=== PATIENT | male | born 1975 | race Caucasian/White ===

== ENCOUNTER → 2019-04-15 | Outpatient (CLI) | payer MEDICAID, SELFPAY ==
[2017-02-13 18:33] VITALS: BMI 22.1
[2019-04-15 13:31] LABS: Erythrocyte Sedimentation Rate 6 mm/hr (0-15)
[2019-04-15 13:33] LABS: Absolute Lymphocyte Count 2.68 X10^3/uL (0.83-4.51); Absolute Neutrophil Count 3.9 X10^3/uL (2.0-7.7); Basophil# 0.04 X10^3/uL; Basophil% 0.5 % (0-1); Eosinophil# 0.22 X10^3/uL; Eosinophils% 2.9 % (0-5); Hematocrit 41.8 % (40-54); Hemoglobin 14.2 g/dL (13.0-16.5); Lymphocyte # 2.68 X10^3/ul (4.0); Lymphocyte % 34.9 % (19-41); Mean Corpuscular Hgb 30.5 pg (27.0-32.0); Mean Corpuscular Volume 89.7 fL (80-94); Mean Platelet Vol. 9.8 fl (6.2-12.0); Monocyte# 0.87 X10^3/uL; Monocyte% 11.3 % (0-10); NRBC Flagged by Analyzer 0 % (0-5); Neutrophil # 3.86 X10^3/uL (2.7-7.7); Neutrophil % 50.1 % (47-70); Platelet Count 278 K/mm3 (150-450); RBC Distribution Width CV 12.7 % (11.6-14.6); RBC Distribution Width SD 41.8 fl (35.1-43.9); Red Blood Count 4.66 M/mm3 (4.6-6.2); White Blood Count 7.7 K/mm3 (4.4-11.0)
[2019-04-15 14:09] LABS: Uric Acid 4.3 mg/dL (3.5-7.2)
== END | disposition home or self-care (01) ==
PROVIDERS: Family Provider Family Medicine; PCP Family Medicine; Referring Provider Family Medicine; Visit Provider Family Medicine
DX: M10.9 Gout, unspecified (principal)
CPT/HCPCS: 36415; 84550; 85025; 85652

== ENCOUNTER 2019-09-17 21:51 | Emergency (ER) | payer SELFPAY ==
[2019-04-15 15:08] VITALS: BMI 22.1
[2019-09-17 21:53] VITALS: BP 149/95; PULSE 135; RESP 16; TEMP 36.4; O2SAT 95; BMI 21.3
--- NOTE | 2019-09-17 22:47 | ED.VIS.GEN ---
History of Present Illness Chief Complaint: General Illness Informant: Patient Narrative: Patient stated for the last couple weeks he has had intermittent fevers. He was dealing with an infection on the distal pad of his left thumb. He incised and drained it approximately a week ago and got pus out of it. He stated it was 4 times the size of a normal thumb. He never came to the hospital for evaluation. He stated it is almost completely back to normal other than some mild residual redness. He stated that he has not had any respiratory symptoms. He stated that he frequently gets skin abscesses and has to vesta them open. He stated that his scalp sometimes gets bumps. He does use methamphetamines and fentanyl as well as smoke marijuana. Patient reported that he was downstairs sleeping and paramedics brought him in for further evaluation. He denies any respiratory complaints. Past Medical History - Allergies and Home Meds Allergies/Adverse Reactions: Allergies shellfish derived Allergy (Verified 04/15/19 15:06) Swelling codeine phosphate [From Tylenol-Codeine #3] Adverse Reaction (Verified 04/15/19 15:06) Nausea/Vom/Diarrhea hydrocodone bitartrate [From Vicodin] Adverse Reaction (Verified 04/15/19 15:06) Upset Stomach Primary Care Physician: NOT,DEFINED [Primary Care Provider] - Prior records reviewed: Yes Past Medical History: - - Substance abuse, skin abscess Surgical History: noncontributory Lives: With Family Smoking Status: Current every day smoker Alcohol: None Drugs: - - Fentanyl, methamphetamines, marijuana Review of Systems General: Reports: Fever. Denies: Chills, Sweats Eyes: Denies: Visual changes - bilaterally, Diplopia ENT: Denies: Rhinorrhea, Sore throat Cardiovascular: Denies: Chest pain, Palpitations Respiratory: Denies: Dyspnea, Cough, Dyspnea on exertion Gastrointestinal: Denies: Abdominal pain, Nausea, Vomiting, Diarrhea, Melena, Hematochezia Genitourinary: Denies: Dysuria, Hematuria, Frequency Musculoskeletal: Denies: Back pain, Extremity Pain Skin: Reports: Abscess, Wounds. Denies: Rash Neurological: Denies: Headache, Weakness, Numbness Physical Exam Vital Signs/Narrative: Vital Signs Temp Pulse Resp BP Pulse Ox 09/17/19 21:53 97.6 F L 135 H 16 149/95 H 95 General: Well nourished, Well developed, No Acute Distress Head: Normocephalic, Atraumatic Eyes: Perrl, EOMI ENT: Moist mucous membranes, No rhinorrhea Neck: Supple, Nontender Cardiovascular: Regular rate, Regular rhythm, No murmurs Respiratory: No distress, CTA bilaterally, Chest nontender Abdomen: Soft, Nontender, Nondistended, Normal bowel sounds Back: Nontender, Normal Inspection Extremities: Nontender, No edema Skin: - - Patient has some superficial abrasions to the scalp without cellulitis folliculitis or abscess. It is likely from scratching the skin. He has a very small folliculitis in his left groin measuring 2 x 2 mm. His left thumb has very mild swelling from his previous suspected felon. Incision and drainage scar can be seen along the central portion. There does not appear to be any fluctuance or infection at this time. There is no cellulitis to the thumb.. Negative for: Normal color, No rash Neurological: Alert, Oriented x3, Cranial nerves II-XII grossly intact, Normal Strength, Normal Sensation Psychological: Normal affect, Normal Mood Diagnostic/Tx/Re-eval - Medical Decision Making She is getting frequent abscess. It is likely from his drug abuse. His heart rate on repeat evaluation in the room is in the 70s. Initially he had a heart rate in the 130s in triage. I am not sure if this is from anxiety. Nonetheless the patient will be started on Bactrim Keflex due to his frequent skin abscess. There is nothing to incise and drain. His felon is healing. He will be given clindamycin lotion as well to put on any new abscess spots. He will try to avoid intravenous drugs. I do not feel he is septic at this time or bacteremic. ED Disposition - Plan for ED Patient[facility] Diagnosis: Skin abscess, Drug abuse Instructions: ABSCESS, Antiobiotic Treatment Only Prescriptions: Smz/Tmp Ds [Bactrim Ds] 1 tab PO BID #20 tab Prescription Printed Clindamycin Phosphate [Cleocin T] 60 ml TP TID #1 lotion Prescription Printed Cephalexin [Keflex] 500 mg PO Q6 #40 cap Prescription Printed Referrals: NOT,DEFINED [Primary Care Provider] - Jase Multani DO [NON CLINICAL AFFILIATE] -
[2019-09-17 22:52] VITALS: BP 138/85; PULSE 58; RESP 18; O2SAT 97
[2019-09-17] MEDS: Smz/Tmp Ds Tablet 1 TABLET PO (22:52)
[2019-09-17] MEDS: Cephalexin 250 MG Capsule 500 MG PO (22:57)
== END 2019-09-17 23:12 | disposition home or self-care (01) ==
LOC: ED 23:01
PROVIDERS: Emergency Provider Emergency Medicine
DX: L02.91 Cutaneous abscess, unspecified (principal); F15.10 Other stimulant abuse, uncomplicated; F11.10 Opioid abuse, uncomplicated; F12.10 Cannabis abuse, uncomplicated; F17.200 Nicotine dependence, unspecified, uncomplicated
CPT/HCPCS: 99285

== ENCOUNTER 2020-02-20 21:59 | Emergency (ER) | payer SELFPAY ==
[2020-02-20 22:00] VITALS: BP 137/74; PULSE 93; PULSE 95; RESP 16; RESP 18; TEMP 37.7; O2SAT 100; BMI 22.6
--- NOTE | 2020-02-20 22:00 | ED.VIS.GEN ---
History of Present Illness Chief Complaint: Overdose Informant: Patient Onset: Today Context: Sudden Onset Timing: Continuous Current Severity: Mild Maximum Severity: Severe Narrative: The patient is a 44-year-old male with medical history significant for drug abuse that presents to the emergency department after accidental heroin overdose. Manuel was called. On arrival, he had agonal respirations. He was then given 6 mg of intranasal Narcan, had an episode of emesis, and now is awake and alert. He denies being suicidal. He states that he thinks it may have been fentanyl in his heroin. He currently denies any other symptoms. He states he is otherwise been in his normal state of health. Prior similar symptoms: No Recent Illness/Hospitalization: No Past Medical History - Allergies and Home Meds Allergies/Adverse Reactions: Allergies shellfish derived Allergy (Verified 04/15/19 15:06) Swelling codeine phosphate [From Tylenol-Codeine #3] Adverse Reaction (Verified 04/15/19 15:06) Nausea/Vom/Diarrhea hydrocodone bitartrate [From Vicodin] Adverse Reaction (Verified 04/15/19 15:06) Upset Stomach Primary Care Physician: Care Physician,No Primary [Primary Care Provider] - Prior records reviewed: Yes Past Medical History: - - Substance abuse Surgical History: noncontributory Smoking Status: Current every day smoker Review of Systems General: Denies: Chills, Fever, Sweats Eyes: Denies: Visual changes - bilaterally, Diplopia ENT: Denies: Rhinorrhea, Sore throat Cardiovascular: Denies: Chest pain, Palpitations Respiratory: Denies: Dyspnea, Cough, Dyspnea on exertion Gastrointestinal: Denies: Abdominal pain, Nausea, Vomiting, Diarrhea, Melena, Hematochezia Genitourinary: Denies: Dysuria, Hematuria, Frequency Musculoskeletal: Denies: Back pain, Extremity Pain Skin: Denies: Rash, Wounds Neurological: Denies: Headache, Weakness, Numbness Physical Exam Inital Vital Signs reviewed: Yes General: Well nourished, Well developed, No Acute Distress Head: Normocephalic, Atraumatic Eyes: Perrl, EOMI ENT: Moist mucous membranes, No rhinorrhea Neck: Supple, Nontender Cardiovascular: Regular rate, Regular rhythm, No murmurs Respiratory: No distress, CTA bilaterally, Chest nontender Abdomen: Soft, Nontender, Nondistended, Normal bowel sounds Back: Nontender, Normal Inspection Extremities: Nontender, No edema Skin: Normal color, No rash Neurological: Alert, Oriented x3, Cranial nerves II-XII grossly intact, Normal Strength, Normal Sensation Psychological: Normal affect, Normal Mood Diagnostic/Tx/Re-eval - Medical Decision Making The patient presents after accidental overdose. He is awake and alert. He frankly denies being suicidal or homicidal. On arrival, he is not tachycardic, tachypneic or hypoxic. The patient was placed on a threat monitoring analyst. His only complaint was of being cold which I feel is likely secondary from the acute withdrawal from the Narcan. He was reevaluated the 30-minute karey and continues to have no complaints. The patient has remained awake and alert throughout his stay. At this point, I do feel he is safe for outpatient therapy. He was counseled on abstaining and will be discharged home. Impression 1. Accidental heroin overdose ED Disposition - Plan for ED Patient: Instructions: ED Overdose Opiate Referrals: Care Physician,No Primary [Primary Care Provider] -
[2020-02-20 22:20] VITALS: BP 132/78; PULSE 93; RESP 15; O2SAT 100
== END 2020-02-20 23:19 | disposition home or self-care (01) ==
LOC: ED 23:26
PROVIDERS: Emergency Provider Emergency Medicine
DX: T40.1X1A Poisoning by heroin, accidental (unintentional), initial encounter (principal); Y92.9 Unspecified place or not applicable; F17.200 Nicotine dependence, unspecified, uncomplicated
CPT/HCPCS: 99285

== ENCOUNTER 2020-11-16 00:42 | Inpatient (IN) | payer MEDICAID, SELFPAY ==
[2020-11-16] VITALS (7 sets, daily range): BP systolic 113–145; BP diastolic 74–98; PULSE 75–97; RESP 16–20; TEMP 36.4–36.7; O2SAT 94–100; BMI 21.2; BMI 20.9; BMI 21.0
--- NOTE | 2020-11-16 00:52 | ED.DCSUM_ITS ---
History of Present Illness Chief Complaint: Substance Abuse Informant: Patient Onset: Month(s) Context: Gradual Onset Timing: Continuous Current Severity: Moderate Maximum Severity: Moderate Narrative: Patient is a 44-year-old male presents to the emergency department questing detox. Patient states that he uses heroin daily. He states that he injects. He is been using daily for about 6 months. He states he is to the point where it is affecting his life and he wants to get clean. He has been in contact with an outpatient rehab facility. He states that he is already made arrangements for long-term rehab placement. He states that he was told that he should get inpatient detox prior to going to rehab. He states that he did inject about 4 hours ago. He also uses methamphetamines. He states that sometimes, he will also take benzodiazepines. He does have a history of prior alcohol abuse, but denies any current alcohol use. He denies fevers or chills. Prior similar symptoms: Yes Recent Illness/Hospitalization: No Past Medical History - Allergies and Home Meds Allergies/Adverse Reactions: Allergies shellfish derived Allergy (Verified 11/16/20 00:43) Swelling codeine phosphate [From Tylenol-Codeine #3] Adverse Reaction (Verified 11/16/20 00:43) Nausea/Vom/Diarrhea hydrocodone bitartrate [From Vicodin] Adverse Reaction (Verified 11/16/20 00:43) Upset Stomach Primary Care Physician: Son Antoine MD [Primary Care Provider] - Prior records reviewed: Yes Past Medical History: None Surgical History: noncontributory Smoking Status: Current every day smoker Review of Systems General: Denies: Chills, Fever, Sweats Eyes: Denies: Visual changes - bilaterally, Diplopia ENT: Denies: Rhinorrhea, Sore throat Cardiovascular: Denies: Chest pain, Palpitations Respiratory: Denies: Dyspnea, Cough, Dyspnea on exertion Gastrointestinal: Denies: Abdominal pain, Nausea, Vomiting, Diarrhea, Melena, Hematochezia Genitourinary: Denies: Dysuria, Hematuria, Frequency Musculoskeletal: Denies: Back pain, Extremity Pain Skin: Denies: Rash, Wounds Neurological: Denies: Headache, Weakness, Numbness Physical Exam Vital Signs/Narrative: Vital Signs Temp Pulse Resp BP Pulse Ox 11/16/20 00:43 97.6 F L 97 20 H 145/98 H 99 Inital Vital Signs reviewed: Yes General: Well nourished, Well developed, No Acute Distress Head: Normocephalic, Atraumatic Eyes: Perrl, EOMI ENT: Moist mucous membranes, No rhinorrhea Neck: Supple, Nontender Cardiovascular: Regular rate, Regular rhythm, No murmurs Respiratory: No distress, CTA bilaterally, Chest nontender Abdomen: Soft, Nontender, Nondistended, Normal bowel sounds Back: Nontender, Normal Inspection Extremities: Nontender, No edema, - - Patient does have track burger in bilateral ACs. There is no evidence of abscess or cellulitis. Skin: Normal color, No rash Neurological: Alert, Oriented x3, Cranial nerves II-XII grossly intact, Normal Strength, Normal Sensation Psychological: Normal affect, Normal Mood Diagnostic/Tx/Re-eval Abnormal Lab Results 11/16/20 11/16/20 11/16/20 00:55 00:55 00:55 WBC 7.4 RBC 4.58 L Hgb 13.7 Hct 41.9 MCV 91.5 MCH 29.9 MCHC 32.7 RDW Std Deviation 42.9 RDW Coeff of Gail 13.0 Plt Count 238 MPV 9.3 Immature Gran % (Auto) 0.300 Neut % (Auto) 55.5 Lymph % (Auto) 35.9 [place] % (Auto) 5.6 Eos % (Auto) 2.3 Baso % (Auto) 0.4 Absolute Neuts (auto) 4.1 Absolute Lymphs (auto) 2.67 Nucleated RBC % 0 Sodium 137 Potassium 4.2 Chloride 101 Carbon Dioxide 32.0 Anion Gap 4 L BUN 10 Creatinine 1.02 Estim Creat Clear Calc 86.87 Est GFR (MDRD) Af Amer 103 Est GFR (MDRD) Non-Af 85 BUN/Creatinine Ratio 9.8 L Glucose 144 H Calcium 9.0 Phosphorus 4.0 Magnesium 2.2 Total Bilirubin 0.30 AST 19 ALT 64 H Alkaline Phosphatase 72 Total Protein 7.8 Albumin 3.5 Globulin 4.3 H Albumin/Globulin Ratio 0.8 L Ethyl Alcohol < 3.0 - Medical Decision Making The patient has longstanding opiate dependence and abuse. He presents requesting inpatient detox. He is already made arrangements for outpatient rehabilitation. Metabolic work-up was pursued and was unremarkable. The patient was discussed with the hospitalist. He will be admitted for opiate detox. Impression 1. Opiate abuse and dependence ED Disposition - Plan for ED Patient: Referrals: Son Antoine MD [Primary Care Provider] -
[2020-11-16 01:05] LABS: Absolute Lymphocyte Count 2.67 X10^3/uL (0.83-4.51); Absolute Neutrophil Count 4.1 X10^3/uL (2.0-7.7); Basophil# 0.03 X10^3/uL; Basophil% 0.4 % (0-1); Eosinophil# 0.17 X10^3/uL; Eosinophils% 2.3 % (0-5); Hematocrit 41.9 % (40-54); Hemoglobin 13.7 g/dL (13.0-16.5); Lymphocyte # 2.67 X10^3/ul (4.0); Lymphocyte % 35.9 % (19-41); Mean Corp Hgb Conc 32.7 g/dL (32-36); Mean Corpuscular Hgb 29.9 pg (27.0-32.0); Mean Corpuscular Volume 91.5 fL (80-94); Mean Platelet Vol. 9.3 fl (6.2-12.0); Monocyte# 0.42 X10^3/uL; Monocyte% 5.6 % (0-10); NRBC Flagged by Analyzer 0 % (0-5); Neutrophil # 4.13 X10^3/uL (2.7-7.7); Neutrophil % 55.5 % (47-70); Platelet Count 238 K/mm3 (150-450); RBC Distribution Width SD 42.9 fl (35.1-43.9); Red Blood Count 4.58 M/mm3 (4.6-6.2); White Blood Count 7.4 K/mm3 (4.4-11.0)
[2020-11-16 01:19] LABS: Alcohol, Blood (Medical)-Serum < 3.0 mg/dL
[2020-11-16 01:22] LABS: ALB/GLOB Ratio 0.8 RATIO (0.9-2.4); AST(SGOT) 19 U/L (15-37); Alanine Aminotransfer ALT/SGPT 64 U/L (16-61); Albumin, Serum 3.5 g/dL (3.2-5.0); Alkaline Phosphatase 72 U/L (45-117); Anion Gap 4 (5-15); BUN 10 mg/dL (7-18); BUN/Creat Ratio 9.8 RATIO (10-20); Chloride 101 mmol/L (98-107); Creatinine, Serum 1.02 mg/dL (0.70-1.30); EST Glomerular Filtration Rate 85 mL/min (>60); Est Glom Filt Rate - Afr Amer 103 mL/min (>60); Estimated Creatinine Clearance 86.87 ml/min; Globulin 4.3 g/dL (2.2-4.2); Glucose 144 mg/dL (74-106); Magnesium 2.2 mg/dL (1.6-2.6); Potassium 4.2 mmol/L (3.5-5.1); Protein, Total 7.8 g/dL (6.4-8.2); Sodium Level 137 mmol/L (136-145)
--- NOTE | 2020-11-16 02:19 | HP.PCM_ITS ---
Problem List (1) Opiate withdrawal Status: Acute (2) Heroin abuse Status: Chronic (3) IV drug abuse Status: Chronic (4) Tobacco use Status: Chronic (5) HTN (hypertension) Status: Chronic Qualifiers: Hypertension type: essential hypertension Qualified Code(s): I10 - Essential (primary) hypertension History of Present Illness Date of Admission: 11/16/20 Chief Complaint: Acute Opiate Withdrawal The patient is a 44 y/o M w/ PMHx: HTN, GERD, History of EtOH abuse noted to be sober, Tobacco use, Polysubstance abuse (Methamphetamine, occasional BZD, primarily IV heroin daily via injection) with ongoing heroin IV daily x ~ 6 months with desire for detoxification with patient already initiated outpatient long-term rehab program who presents to the [facility] ED on 11/16/20 with last dose of heroin approximately 6 to 7 hours prior to current presentation with onset of opiate withdrawal with noted abdominal pain/cramping, generalized body aches and pains, rhinorrhea, fatigue and restlessness concurrently. Work-up in the ED included T 97.6, rate 97, BP 145/98, respiratory rate 20, 99% on room air, CBC unremarkable, CMP with glucose 114, AST/ALT 19/64 otherwise not marked appearing, ethyl alcohol level less than 3, urine drug screen pending upon evaluation. Past Medical History Past Medical History (Chronic Problems): Chronic Problems (Last Updated 04/15/19 @ 15:08 by Romelia Bradford) Heroin abuse (Chronic) IV drug abuse (Chronic) Tobacco use (Chronic) HTN (hypertension) (Chronic) Medical History: Medical History (Last Updated 04/15/19 @ 15:08 by Romelia Bradford) Arthritis M19.90 Hay fever J30.1 Heart disease I51.9 Hemorrhoids K64.9 Neck pain M54.2 Severe headache R51 Hypertension I10 Allergies shellfish derived Allergy (Verified 11/16/20 00:43) Swelling codeine phosphate [From Tylenol-Codeine #3] Adverse Reaction (Verified 11/16/20 00:43) Nausea/Vom/Diarrhea hydrocodone bitartrate [From Vicodin] Adverse Reaction (Verified 11/16/20 00:43) Upset Stomach Home Medications: Ambulatory Orders Medication Instructions Recorded Omeprazole [Prilosec] 20 mg PO DAILY 11/16/20 Surgical History: - - Sinus surgery, tonsillectomy. Psychiatric History: No pertinent psych hx Lives: With Family - Patient notes he is taking care of his mother who lives with him. Smoking Status: Current every day smoker - Patient notes approximately 3 pack/day week but is not sure. Tobacco Use: Cigarettes Alcohol: Sober - Patient has been sober for 5-1/2 years. Drugs: Heroin - Patient with ongoing IV heroin usage usually 1/2 g daily. - *Family History Maternal History Items: Hypertension Paternal History Items: Cancer - Father with history of prostate cancer. Review of Systems Constitutional: Reports: Anorexia, Malaise, Weakness, Fatigue. Denies: Chills, Fever, Weight Change HEENT: Reports: Nasal Congestion, Sinus Congestion. Denies: Head Aches, Sinus Drainage Cardiovascular: Denies: Chest Pain, Palpitations Respiratory: Denies: Cough, Shortness of breath at rest, Sputum production Gastrointestinal: Reports: Abdominal Pain, Nausea. Denies: Vomiting Genitourinary: Denies: Dysuria Musculoskeletal: Reports: Back Pain, Joint Pain, Muscle pain. Denies: Joint Tenderness Skin: Denies: Rash, Wounds Neurological: Denies: Numbness, Tingling, Focal weakness Psychiatric: Denies: Anxiety, Depression, Homicidal Ideations, Suicidal Id eations Hematologic/ Lymphatic: Denies: Easy Bruising, Easy Bleeding VTE Information - Inpt Only VTE Present on Admission: No VTE Mechan Device Prophylaxis: None VTE Pharm Prophylaxis ordered?: No Reason prophylaxis not ordered:: Treatment Not Indicated Subjective: Patient seated upright in ED bed, mildly agitated, restless, rhinorrhea evident. Objective: Physical Examination: General: awake, alert, oriented x 3 and cooperative, seated upright in the ED bed, restless, mildly agitated, flushed, rhinorrhea evident. Skin: Flushed skin color, turgor, no icterus, cyanosis. HEENT: AT/NC, EOMI, PERRLA, MMM, rhinorrhea evident, no carotid bruits or JVD noted. Lungs: CTA bilaterally, moderate effort, mild decrease BL bases, no rales, ronchi or wheezing. Heart: Mildly tachycardic with regular rhythm; no gallop, rub audible. Abdomen: soft, mild generalized discomfort with no rebound or guarding, ND, hyperactive BS, no HSM. Extremities: no cyanosis, clubbing, or edema. Neurological: patient awake, alert, oriented as noted; cognitive function intact; pupils equally reactive to light and accomodation; cranial nerves II-XII grossly normal, moving all 4 extremities, no focal deficits, strength mildly d ecreased secondary to acute presentation, extremely restless. Psychiatric: affect appears restless and mildly agitated, no acute evidence of depressive or anxiety feelings. - Physical Exam Vitals/I&O's: Vital Signs Temp Pulse Resp BP Pulse Ox 97.6 F L 97 20 H 145/98 H 99 11/16/20 00:43 11/16/20 00:43 11/16/20 00:43 11/16/20 00:43 11/16/20 00:43 Oxygen Delivery Method Room Air Weight: 143 lb 8.335 oz Body Mass Index (BMI) 21.2 Laboratory Results 11/16/20 00:55: WBC 7.4, RBC 4.58 L, Hgb 13.7, Hct 41.9, MCV 91.5, MCH 29.9, MCHC 32.7, RDW Std Deviation 42.9, RDW Coeff of Gail 13.0, Plt Count 238, MPV 9.3, Immature Gran % (Auto) 0.300, Neut % (Auto) 55.5, Lymph % (Auto) 35.9, [place] % (Auto) 5.6, Eos % (Auto) 2.3, Baso % (Auto) 0.4, Absolute Neuts (auto) 4.1, Absolute Lymphs (auto) 2.67, Nucleated RBC % 0 11/16/20 00:55: Sodium 137, Potassium 4.2, Chloride 101, Carbon Dioxide 32.0, Anion Gap 4 L, BUN 10, Creatinine 1.02, Estim Creat Clear Calc 86.87, Est GFR (MDRD) Af Amer 103, Est GFR (MDRD) Non-Af 85, BUN/Creatinine Ratio 9.8 L, Gluc ose 144 H, Calcium 9.0, Phosphorus 4.0, Magnesium 2.2, Total Bilirubin 0.30, AST 19, ALT 64 H, Alkaline Phosphatase 72, Total Protein 7.8, Albumin 3.5, Globulin 4.3 H, Albumin/Globulin Ratio 0.8 L 11/16/20 00:55: Ethyl Alcohol < 3.0 Assessment/Plan All Active Problems (Last Updated 04/15/19 @ 15:08 by Romelia Bradford) Opiate withdrawal (Acute) The patient is a 44 y/o M w/ PMHx: HTN, GERD, History of EtOH abuse noted to be sober, Tobacco use, Polysubstance abuse (Methamphetamine, occasional BZD, primarily IV heroin daily via injection) with ongoing heroin IV daily x ~ 6 months with desire for detoxification with acute withdrawal onset. 1. Acute Opiate Withdrawal: Will admit to [facility], routine labs including CBC, CMP not marked appearing, awaiting urine drug screen, will initiate and continue on protocol with tapering course of Subutex, as needed tylenol, ibuprofen, bowel regimen, gabapentin, Bentyl, Vistaril, methocarbamol, clonidine, PRN nightly trazodone for insomnia, IV fluids, IV antiemetics. Once patient clinically improved and completion of taper nearing will plan consultation with case management for transition to next level of rehabilitation care. 2. Polysubstance Abuse, IVDA: Given IV drug abuse history will obtain HIV and hepatitis panel although patient currently not candidate for hep C treatment currently as needs to be clean, sober x 6 months, documented attendance NA or AA meetings, counseling and ongoing negative drug screens. 3. Hypertension: Reported history per patient, no current regimen listed, will monitor blood pressure and if appropriate add oral regimen, in the interim as needed IV hydralazine. 4. Tobacco Abuse: Encouraged cessation, inpatient consultation per RT, NR if desired. 5. GERD: We will continue patient on PPI. 6. DVT prophylaxis: Low risk, encourage ambulation. Inpatient E&M: 89571 Init Hosp L3
[2020-11-16 04:49] LABS: Amphetamine Urine VISTA POSITIVE (<1000 ng/mL); Barbiturate Urine VISTA NEGATIVE (< 200 ng/mL); Benzodiazepine Urine VISTA NEGATIVE (< 200 ng/mL); Cocaine Urine VISTA NEGATIVE (< 300 ng/mL); Ecstacy Urine VISTA POSITIVE (< 500 ng/mL); Methadone Urine VISTA NEGATIVE (< 300 ng/mL); PCP Urine VISTA NEGATIVE (< 25 ng/mL); THC Urine VISTA POSITIVE (< 50 ng/mL); Vista UDS pH Range 7
[2020-11-16 06:05] LABS: HIV - WCH Non-Reactive (Nonreactive); Hepatitis B Surface Antibody Reactive; Hepatitis B Surface Antigen Non-Reactive (Nonreactive)
[2020-11-16 06:06] LABS: Hepatitis C Antibody Preliminary Reactive (Nonreactive)
--- NOTE | 2020-11-16 08:07 | CCHN_ITS ---
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 He usually has IV heroin daily injection mainly in antecubital regions. He denies history of chronic hepatitis C, HIV or chronic hepatitis B. Symptoms are controlled. No tox positive of DC's, amphetamines, methamphetamines and cannabinoids. Hepatitis B surface antigen nonreactive, B surface antibody reactive, hepatitis C preliminary reactive. ALT elevated 64. A/G ratio 0.8 with total globulin 4.3. Albumin 3.5. Hepatitis B antigen, E antibody, core IgM and core total antibody ordered
[2020-11-16] MEDS: Ibuprofen 600 MG Tablet PO ×2 (08:13→20:56)
[2020-11-16] MEDS: Dicyclomine 10 MG Capsule 20 MG PO ×2 (08:14→15:50)
[2020-11-16] MEDS: Gabapentin 300 MG Capsule PO ×2 (08:14→20:55)
[2020-11-16] MEDS: Pantoprazole Sodium 20 MG Tablet PO (08:14)
[2020-11-16] MEDS: Buprenorphine HCl 2 MG TAB.SUBL SL ×2 (08:55→15:43)
[2020-11-16] MEDS: Ondansetron 8 MG Tablet PO ×2 (11:39→20:55)
[2020-11-16] MEDS: hydrOXYzine PAM 25 MG Capsule 50 MG PO ×2 (11:39→20:55)
[2020-11-16] MEDS: Mag Hydrox/Al Hydrox/Simeth 30 ML UDC PO ×2 (12:03→20:56)
[2020-11-16] MEDS: Methocarbamol 750 MG Tablet 1500 MG PO ×2 (12:43→20:55)
--- NOTE | 2020-11-16 14:15 | PCM.NTREPORT ---
Nutrition Therapy Report - History Nutrition Services has been consulted to:: Manage nutrient details of diet order Current diet / nutrition support order:: regular, ensure enlive 120mL 4x/day - Anthropometric Measurements Height:: 5 ft 9 in Weight:: 64.546 kg Body Mass Index (BMI):: 20.9 - Relevant Labs Relevant Labs:: RBC 4.58 M/mm3 (4.6-6.2) L 11/16/20 00:55 Anion Gap 4 (5-15) L 11/16/20 00:55 BUN/Creatinine Ratio 9.8 RATIO (10-20) L 11/16/20 00:55 Glucose 144 mg/dL (74-106) H 11/16/20 00:55 ALT 64 U/L (16-61) H 11/16/20 00:55 Globulin 4.3 g/dL (2.2-4.2) H 11/16/20 00:55 Albumin/Globulin Ratio 0.8 RATIO (0.9-2.4) L 11/16/20 00:55 - Assessment Food / Nutrition-Related History:: Pt reports fair appetite/intake over past 1 year- states he is very physically active, riding 40+ miles on bike regularly. Pt believes he has lost wt d/t not eating well w/ increased activity. UBW 165# approx 8 months ago per pt. CBW 142.3#-22.7#/13.7% wt loss, significant. Good intake reported since admission. - Nutrition Diagnosis Problem / Etiology / Signs & Symptoms (PES):: moderate malnutrition r/t social/behavioral circumstances- inadequate energy intake d/t excessive physical activity, opiate abuse as evidenced by estimated PO intake meeting <75% of estimated nutritional needs, unintentional wt loss of 22.7#/13.7% x 8 months. Evidence of Malnutrition Exists:: Yes Moderate PCM:: Social & Environmental circumstances - Nutrition Intervention Nutrition Prescription:: 5401-1891 calories/day (1.3xRMR). 60-70g protein/day (1g/kg). 2240mL fluid/day (35mL/kg) - Food / Nutrient Delivery Interventions Summary of nutrition intervention:: Pt is agreeable to ensure enlive, will continue. Pt w/ no questions for RDN at this time. Nutrition support ordered as / adjusted to:: continue regular diet, ensure enlive as ordered. - MNT Monitoring Further MNT monitoring and evaluation required?: Yes MNT Follow-up in:: 3-5 days
[2020-11-16] MEDS: cloNIDine HCl 0.1 MG Tablet PO (15:50)
[2020-11-17] MEDS: Buprenorphine HCl 2 MG TAB.SUBL SL ×4 (00:17→23:45)
[2020-11-17] MEDS: traZODone 100 MG Tablet PO ×2 (00:29→23:45)
[2020-11-17 00:30] VITALS: BP 130/83; PULSE 70; RESP 16; TEMP 37; O2SAT 100
[2020-11-17 05:00] VITALS: BP 124/78; PULSE 68; RESP 16; TEMP 37.3; O2SAT 100
[2020-11-17 07:00] VITALS: O2SAT 97
[2020-11-17] MEDS: Pantoprazole Sodium 20 MG Tablet PO (07:33)
[2020-11-17] MEDS: Gabapentin 300 MG Capsule PO ×2 (07:42→21:14)
[2020-11-17] MEDS: Ibuprofen 600 MG Tablet PO ×2 (07:43→21:14)
[2020-11-17 07:46] VITALS: BP 130/86; PULSE 85; RESP 18; TEMP 37.1; O2SAT 98
[2020-11-17] MEDS: Methocarbamol 750 MG Tablet 1500 MG PO (10:12)
[2020-11-17] MEDS: hydrOXYzine PAM 25 MG Capsule 50 MG PO (10:12)
[2020-11-17 14:00] VITALS: BP 137/73; PULSE 67; RESP 18; TEMP 37.2; O2SAT 100
[2020-11-17] MEDS: Dicyclomine 10 MG Capsule 20 MG PO (14:31)
[2020-11-17] MEDS: Mag Hydrox/Al Hydrox/Simeth 30 ML UDC PO (14:36)
--- NOTE | 2020-11-17 15:24 | PCM.PN.HOSP ---
Patient Problems: Active and Suspected Problems (Last Updated 04/15/19 @ 15:08 by Romelia Bradford) Opiate withdrawal (Acute) Reason for Visit: Follow-up for acute opioid withdrawal. Objective: Seen and examined. Patient has history of chronic opioid use, IV heroin. Awake and alert and responding well to questions. Physical exam General: Alert, Oriented x3, Cooperative HEENT: Atraumatic, PERRLA, EOMI, Normocephalic Oral: No Gingival or Mucosal Lesions/ Ulcerations Neck: Supple, No JVD, Negative Carotid Bruits Lungs: Air entry diminished in bilateral lung bases. No crepitation/rhonchi Cardiovascular: Regular rate, Regular Rhythm, Normal S1, Normal S2, No murmurs Abdomen: Bowel Sounds Present, Soft, Non Tender, Non-Distended : No renal angle tenderness. No suprapubic tenderness. Extremities: No edema, Capillary Refill Less than 3 Seconds Skin: Due to scar karey over bilateral antecubital regions. No rashes, No breakdown Musculoskeletal: Mild atrophy of extremity muscles and loss of subcutaneous fat. No Tenderness to Palpation of Joints or Extremities Neurological: Cranial nerves II-XII grossly intact, Deep Tendon Reflexes 2+/4 and Symmetrical, Neuro grossly intact Psych/Mental Status: Normal Affect, Appropriate. Vitals/I&O's: Vital Signs Temp Pulse Resp BP Pulse Ox 98.9 F 67 18 137/73 H 100 11/17/20 14:00 11/17/20 14:00 11/17/20 14:00 11/17/20 14:00 11/17/20 14:00 Oxygen Delivery Method Room Air Weight: 142 lb 4.793 oz Body Mass Index (BMI) 20.9 Intake and Output for Last 24 Hours 11/15/20 11/16/20 11/17/20 23:59 23:59 23:59 Intake Total 200 / 200 Balance 200 / 200 Laboratory Results 11/16/20 00:55: Hep B Core Total Ab Pending, Hep B Core IgM Ab Pending, Hepatitis Be Antibody Pending, Hepatitis Be Antigen Pending Current Medications Acetaminophen (Acetaminophen 500 Mg Tablet) 500 mg PO Q4H PRN PRN PRN Reason: Temp > 100.4 F Al Hydroxide/Mg Hydroxide (Mag Hydrox/Al Hydrox/Simeth 30 Ml Udc) 30 ml PO Q6H PRN PRN PRN Reason: dyspesia Last Admin: 11/17/20 14:36 Dose: 30 ml Documented by: Albuterol Sulfate (Albuterol 2.5 Mg/3 Ml Vial.Neb.) 2.5 mg INHALATION Q2H PRN PRN PRN Reason: Dyspnea, wheezing Bisacodyl (Bisacodyl 10 Mg Suppository) 10 mg RC DAILY PRN PRN Reason: Constipation Buprenorphine HCl (Buprenorphine Hcl 2 Mg Tab.Subl) 2 mg SL Q8H WILMAR; Taper Stop: 11/19/20 07:59 Last Admin: 11/17/20 14:31 Dose: 2 mg Documented by: Clonidine (Clonidine Hcl 0.1 Mg Tablet) 0.1 mg PO Q8H PRN PRN PRN Reason: RESTLESSNESS Last Admin: 11/16/20 15:50 Dose: 0.1 mg Documented by: Dicyclomine HCl (Dicyclomine 10 Mg Capsule) 20 mg PO Q6H PRN PRN PRN Reason: Abdominal Discomfort Last Admin: 11/17/20 14:31 Dose: 20 mg Documented by: Gabapentin (Gabapentin 300 Mg Capsule) 300 mg PO Q8H PRN PRN PRN Reason: moderate to severe anxiety Last Admin: 11/17/20 07:42 Dose: 300 mg Documented by: Hydralazine HCl (Hydralazine 20 Mg/Ml Vial) 10 mg IV Q4H PRN PRN PRN Reason: SBP > 160 Hydroxyzine Pamoate (Hydroxyzine Oxana 25 Mg Capsule) 50 mg PO Q6H PRN PRN PRN Reason: mild anxiety Last Admin: 11/17/20 10:12 Dose: 50 mg Documented by: Sodium Chloride () 250 mls @ 15 mls/hr IV .[id number] PRN PRN Reason: Additional IVPB Infusion Ibuprofen (Ibuprofen 600 Mg Tablet) 600 mg PO Q8H PRN PRN PRN Reason: PAIN 1-10 Last Admin: 11/17/20 07:43 Dose: 600 mg Documented by: Loperamide HCl (Loperamide 2 Mg Capsule) 2 mg PO Q4H PRN PRN PRN Reason: LOOSE STOOLS Methocarbamol (Methocarbamol 750 Mg Tablet) 1,500 mg PO Q6H PRN PRN PRN Reason: MUSCLE SPASM Last Admin: 11/17/20 10:12 Dose: 1,500 mg Documented by: Nicotine (Nicotine 21 Mg Patch) 21 mg TD DAILY [facility] Last Admin: 11/17/20 07:33 Dose: 21 mg Documented by: Nutritional Formula (Lactose Free) (Ensure Enlive 120 Ml Liquid) 120 ml PO 4X/DAY [facility] Last Admin: 11/17/20 14:31 Dose: 120 ml Documented by: Ondansetron HCl (Ondansetron 8 Mg Tablet) 8 mg PO Q8H PRN PRN PRN Reason: NAUSEA Last Admin: 11/16/20 20:55 Dose: 8 mg Documented by: Pantoprazole Sodium (Pantoprazole Sodium 20 Mg Tablet) 20 mg PO DAILY [facility] Last Admin: 11/17/20 07:33 Dose: 20 mg Documented by: Senna (Senna Tablet) 2 tablet PO QHS PRN PRN Reason: Constipation Sodium Chloride (0.9% Saline Lock 10 Ml Syringe) 10 - 40 ml IV UD PRN PRN Reason: SALINE FLUSH Trazodone HCl (Trazodone 100 Mg Tablet) 100 mg PO QHS PRN PRN PRN Reason: INSOMNIA Last Admin: 11/17/20 00:29 Dose: 100 mg Documented by: STROKE Vital Signs/Narrative: Vital Signs Temp Pulse Resp BP Pulse Ox 11/17/20 14:00 98.9 F 67 18 137/73 H 100 Medical Necessity - Tobacco Use Smoking Status: Current every day smoker Tobacco Use: Cigarettes Assessment/Plan All Active Problems (Last Updated 04/15/19 @ 15:08 by Romelia Bradford) Opiate withdrawal (Acute) Is a 44, gentleman with history of hypertension and GERD, chronic opioid use and dependence admitted with opioid withdrawal. 1. Acute opioid withdrawal with history of chronic opioid use, dependence and tolerance: Patient is responding well to buprenorphine sublingual along with other supportive medications including gabapentin, Bentyl, Vistaril and methocarbamol. Trazodone for insomnia. 2. Polysubstance use including methamphetamine, benzodiazepine. Patient also has history of alcohol abuse. ALT 64. AST normal albumin 3.25. U tox positive for opioids, methamphetamine, amphetamine and cannabinoids. Possible chronic otitis C: Hepatitis profile showing preliminary reactive. HIV 1 and 2 antibody nonreactive. Patient recalls that he has been vaccinated with hepatitis B vaccine, 3 doses in the past. Surface antigen negative, surface antibody reactive. Hepatitis B core antibody E antigen and E antibody are pending. 3. Moderate malnutrition: Seen by tanning solution maker. 4. Hypertension and GERD: Home medications continued. Blood pressure is controlled. VTE prophylaxis: Low risk. Early ambulation encouraged. Inpatient E&M: 31903 Subs Hosp L2
[2020-11-17 20:52] VITALS: BP 118/75; PULSE 66; RESP 18; TEMP 37; O2SAT 97
[2020-11-18 03:54] VITALS: BP 135/82; PULSE 58; RESP 16; TEMP 36.8; O2SAT 97
[2020-11-18] MEDS: Buprenorphine HCl 2 MG TAB.SUBL SL (09:28)
[2020-11-18] MEDS: Pantoprazole Sodium 20 MG Tablet PO (09:28)
[2020-11-18 09:30] VITALS: BP 129/76; PULSE 70; RESP 18; TEMP 36.9; O2SAT 100
[2020-11-18 10:29] VITALS: O2SAT 97
--- NOTE | 2020-11-18 11:15 | DCINST_ITS ---
- Discharge Diagnoses Current Active Problems: Current Active and Chronic Problems (Last Updated 04/15/19 @ 15:08 by Romelia Bradford) Opiate withdrawal (Acute) Heroin abuse (Chronic) IV drug abuse (Chronic) Tobacco use (Chronic) HTN (hypertension) (Chronic) You will use the following diet at home:: Regular Your food should be the consistency of: Regular Discharge Activity: May Not Drive Weight Bearing Status: Weight bearing as tolerated Call your doctor if you observe: Fever of 101 or Higher, Numbness or Tingling, Change in Color, Inability to urinate, Inability to have a bowel movement, Shortness of breath, Dizziness, Fainting spells, Swelling in the ankles, Chest pain, Prolonged hiccoughing, Increased palpitations (irregular heartbeat), Uncontrolled pain Allergies/Adverse Reactions: Allergies shellfish derived Allergy (Verified 11/16/20 03:13) Swelling codeine phosphate [From Tylenol-Codeine #3] Adverse Reaction (Verified 11/16/20 03:13) Nausea/Vom/Diarrhea hydrocodone bitartrate [From Vicodin] Adverse Reaction (Verified 11/16/20 03:13) Upset Stomach Medications to take at Discharge Nicotine [Nicoderm Cq] 21 mg TD DAILY #30 patch 11/18/20 Omeprazole [Prilosec] 20 mg PO DAILY #30 cap 11/18/20 The following prescriptions were given: Nicotine [Nicoderm Cq] 21 mg TD DAILY #30 patch Transmission Status: Pending to [email or web address]30 Omeprazole [Prilosec] 20 mg PO DAILY #30 cap Transmission Status: Pending to [email or web address] Primary Care Physician: Son Antoine MD [Primary Care Provider] - Please follow up with your Primary Care Physician in: In 2 weeks for treatment of chronic otitis C Test Results: Test results from this visit will be discussed in further detail at your follow- up appointment, if applicable.
--- NOTE | 2020-11-18 11:52 | PCM.DC.SUM ---
Discharge Date and Diagnosis - Problem List Patient Problems: Active and Suspected Problems (Last Updated 04/15/19 @ 15:08 by Romelia Bradford) Opiate withdrawal (Acute) Date of Admission: 11/16/20 Date of Discharge: 11/18/20 - Primary Discharge Diagnosis Acute Problems: Active Problems (Last Updated 04/15/19 @ 15:08 by Romelia Bradford) Opiate withdrawal (Acute) - Secondary Discharge Diagnosis Chronic Problems: Chronic Problems (Last Updated 04/15/19 @ 15:08 by Romelia Bradford) Heroin abuse (Chronic) IV drug abuse (Chronic) Tobacco use (Chronic) HTN (hypertension) (Chronic) Hospital Course and Treatment Summary of Care Provided: The patient is a 44 year old gentleman with history of hypertension and GERD, chronic opioid use and dependence admitted with opioid withdrawal. 1. Acute opioid withdrawal with history of chronic opioid use, dependence and tolerance: Patient is responding well to buprenorphine sublingual along with other supportive medications including gabapentin, Bentyl, Vistaril and methocarbamol. Trazodone for insomnia. Patient agreed to quit opioid. Outpatient follow-up for opioid rehab 2. Polysubstance use including methamphetamine, benzodiazepine. Patient also has history of alcohol abuse. ALT 64. AST normal albumin 3.25. U tox positive for opioids, methamphetamine, amphetamine and cannabinoids. Possible chronic otitis C: Hepatitis profile showing preliminary reactive. HIV 1 and 2 antibody nonreactive. Patient recalls that he has been vaccinated with hepatitis B vaccine, 3 doses in the past. Surface antigen negative, surface antibody reactive. Hepatitis B core antibody E antigen and E antibody are pending But I think it will come nonreactive as surface antibody is positive because of vaccination. 3. Moderate malnutrition: Seen by geothermal operations engineer. 4. Hypertension and GERD: Blood pressure is controlled. VTE prophylaxis: Low risk. Early ambulation encouraged. Discharge medication reconciliation done. Discharge follow-up instructions completed. Discharge process discussed with the patient and all questions were answered to patient's satisfaction. Total time spent, exact 35 minutes on discharge meds reconciliation, examination, coordination of care with nurses and ancillary staff, review of imaging and blood test and discussion with the patient on follow-up instructions Patient Problems: Active and Suspected Problems (Last Updated 04/15/19 @ 15:08 by Romelia Bradford) Opiate withdrawal (Acute) - Physical Exam Vitals/I&O's: Vital Signs Temp Pulse Resp BP Pulse Ox 98.5 F 70 18 129/76 H 97 11/18/20 09:30 11/18/20 09:30 11/18/20 09:30 11/18/20 09:30 11/18/20 10:29 Oxygen Delivery Method Room Air Weight: 142 lb 4.793 oz Body Mass Index (BMI) 20.9 Intake and Output for Last 24 Hours 11/16/20 11/17/20 11/18/20 23:59 23:59 23:59 Intake Total 200 / 200 400 / 400 Balance 200 / 200 400 / 400 Current Medications Acetaminophen (Acetaminophen 500 Mg Tablet) 500 mg PO Q4H PRN PRN PRN Reason: Temp > 100.4 F Al Hydroxide/Mg Hydroxide (Mag Hydrox/Al Hydrox/Simeth 30 Ml Udc) 30 ml PO Q6H PRN PRN PRN Reason: dyspesia Last Admin: 11/17/20 14:36 Dose: 30 ml Documented by: Albuterol Sulfate (Albuterol 2.5 Mg/3 Ml Vial.Neb.) 2.5 mg INHALATION Q2H PRN PRN PRN Reason: Dyspnea, wheezing Bisacodyl (Bisacodyl 10 Mg Suppository) 10 mg RC DAILY PRN PRN Reason: Constipation Buprenorphine HCl (Buprenorphine Hcl 2 Mg Tab.Subl) 2 mg SL Q12H WILMAR; Taper Stop: 11/19/20 07:59 Last Admin: 11/18/20 09:28 Dose: 2 mg Documented by: Clonidine (Clonidine Hcl 0.1 Mg Tablet) 0.1 mg PO Q8H PRN PRN PRN Reason: RESTLESSNESS Last Admin: 11/16/20 15:50 Dose: 0.1 mg Documented by: Dicyclomine HCl (Dicyclomine 10 Mg Capsule) 20 mg PO Q6H PRN PRN PRN Reason: Abdominal Discomfort Last Admin: 11/17/20 14:31 Dose: 20 mg Documented by: Gabapentin (Gabapentin 300 Mg Capsule) 300 mg PO Q8H PRN PRN PRN Reason: moderate to severe anxiety Last Admin: 11/17/20 21:14 Dose: 300 mg Documented by: Hydralazine HCl (Hydralazine 20 Mg/Ml Vial) 10 mg IV Q4H PRN PRN PRN Reason: SBP > 160 Hydroxyzine Pamoate (Hydroxyzine Oxana 25 Mg Capsule) 50 mg PO Q6H PRN PRN PRN Reason: mild anxiety Last Admin: 11/17/20 10:12 Dose: 50 mg Documented by: Sodium Chloride () 250 mls @ 15 mls/hr IV .[id number] PRN PRN Reason: Additional IVPB Infusion Ibuprofen (Ibuprofen 600 Mg Tablet) 600 mg PO Q8H PRN PRN PRN Reason: PAIN 1-10 Last Admin: 11/17/20 21:14 Dose: 600 mg Documented by: Loperamide HCl (Loperamide 2 Mg Capsule) 2 mg PO Q4H PRN PRN PRN Reason: LOOSE STOOLS Methocarbamol (Methocarbamol 750 Mg Tablet) 1,500 mg PO Q6H PRN PRN PRN Reason: MUSCLE SPASM Last Admin: 11/17/20 10:12 Dose: 1,500 mg Documented by: Nicotine (Nicotine 21 Mg Patch) 21 mg TD DAILY [facility] Last Admin: 11/18/20 09:29 Dose: Not Given Documented by: Nutritional Formula (Lactose Free) (Ensure Enlive 120 Ml Liquid) 120 ml PO 4X/DAY [facility] Last Admin: 11/18/20 09:29 Dose: Not Given Documented by: Ondansetron HCl (Ondansetron 8 Mg Tablet) 8 mg PO Q8H PRN PRN PRN Reason: NAUSEA Last Admin: 11/16/20 20:55 Dose: 8 mg Documented by: Pantoprazole Sodium (Pantoprazole Sodium 20 Mg Tablet) 20 mg PO DAILY [facility] Last Admin: 11/18/20 09:28 Dose: 20 mg Documented by: Senna (Senna Tablet) 2 tablet PO QHS PRN PRN Reason: Constipation Sodium Chloride (0.9% Saline Lock 10 Ml Syringe) 10 - 40 ml IV UD PRN PRN Reason: SALINE FLUSH Trazodone HCl (Trazodone 100 Mg Tablet) 100 mg PO QHS PRN PRN PRN Reason: INSOMNIA Last Admin: 11/17/20 23:45 Dose: 100 mg Documented by: Discharge Activity: May Not Drive Weight Bearing Status: Weight bearing as tolerated Call your doctor if you observe: Fever of 101 or Higher, Numbness or Tingling, Change in Color, Inability to urinate, Inability to have a bowel movement, Shortness of breath, Dizziness, Fainting spells, Swelling in the ankles, Chest pain, Prolonged hiccoughing, Increased palpitations (irregular heartbeat), Uncontrolled pain Home Medications: Medications to take at Discharge Nicotine [Nicoderm Cq] 21 mg TD DAILY #30 patch 11/18/20 Omeprazole [Prilosec] 20 mg PO DAILY #30 cap 11/18/20 Following Prescriptions Were Given to Patient: Nicotine [Nicoderm Cq] 21 mg TD DAILY #30 patch Transmission Status: Received by [facility] Omeprazole [Prilosec] 20 mg PO DAILY #30 cap Transmission Status: Received by [facility] Primary Care Physician: Son Antoine MD [Primary Care Provider] - Please follow up with your Primary Care Physician in: In 2 weeks for treatment of chronic otitis C Medical Necessity - Tobacco Use Smoking Status: Current every day smoker Tobacco Use: Cigarettes Meaningful Use Info Meaningful Use Diagnoses (Choose all that apply): None applicable Inpatient E&M: 61539 [facility] Hosp
[2020-11-18 11:58] VITALS: BP 129/76; PULSE 70; RESP 18; TEMP 36.9; O2SAT 100
--- NOTE | 2020-11-18 12:05 | CASEMGMT ---
BOWEN faxed discharge instructions to [facility] per their request. Patient was a [facility] patient. Per Wendy at [facility] he was scheduled to be admitted to inpatient treatment Saturday. Reina SPIVEY MSW
[2020-11-18 16:08] LABS: Hepatitis B Core Ab Total Positive (Negative); Hepatitis Be Ab Negative (Negative); Hepatitis Be Ag Negative (Negative)
[2020-11-18 17:04] LABS: Hepatitis B Core AB IgM Negative (Negative)
== END 2020-11-18 12:29 | disposition home or self-care (01) | DRG 773 ==
LOC: ED 01:51 → PCU 02:35
PROVIDERS: Admitting Provider Family Medicine; Emergency Provider Emergency Medicine; PCP Family Medicine; Visit Provider Internal Medicine
DX: F11.23 Opioid dependence with withdrawal (principal); E44.0 Moderate protein-calorie malnutrition; Z68.20 Body mass index [BMI] 20.0-20.9, adult; K21.9 Gastro-esophageal reflux disease without esophagitis; I10 Essential (primary) hypertension; M19.90 Unspecified osteoarthritis, unspecified site; G47.00 Insomnia, unspecified; F15.10 Other stimulant abuse, uncomplicated; F10.10 Alcohol abuse, uncomplicated; F17.210 Nicotine dependence, cigarettes, uncomplicated
CPT/HCPCS: 80053; 80307; 82077; 83735; 84100; 85025; 86703; 86704; 86705; 86706; 86707; 86803; 87340; 87350; 97802; 99406